=== PATIENT | male | born 1995 | race Caucasian/White ===

== ENCOUNTER 2017-11-15 09:16 | Emergency (ER) | payer SELFPAY ==
[~2017-11-15] VITALS: Ht 182.9 cm; Wt 120.2 kg
[2017-11-15] MEDS ORDERED: IV NORMAL SALINE 1,000ML 1,000 ML IV ONE (09:45)
[2017-11-15] MEDS ORDERED: methylPREDNISolone SOD SUCC PF 125 MG/2 ML VIAL. IV ONE (09:45)
[2017-11-15] MEDS ORDERED: diphenhydrAMINE 50 MG/ML VIAL IVP ONE (09:45)
[2017-11-15] MEDS ORDERED: FAMOTIDINE 20 MG/2 ML VIAL IVP ONE (09:45)
[2017-11-15] MEDS ORDERED: DIPH50CA PO (10:33)
[2017-11-15] MEDS ORDERED: PRED20TA PO (10:33)
[2017-11-15] MEDS ORDERED: LORA10TA3 PO (10:33)
[2017-11-15] MEDS ORDERED: RANI150T21 PO (10:33)
[2017-11-15 11:00] VITALS: BP 121/76
--- NOTE | 2017-11-15 11:05 | ED.ADGEN ---
Past History Past Medical History: No Pertinent History Past Surgical History: No Surgical History Alcohol Use: None Drug Use: None Adult General HPI HPI Patient is a 22 year old male who presents with rash. Patient first noticed a rash on his hands after petting his girlfriend's dog 2 days earlier. He applied some topical steroids to the area yesterday. This morning, he awoke with the same rash only it had spread over the arms and torso and to the legs and knees. He has not had a fever. He does not have allergies that he knows of but he has had an allergy to poison estefania in the past. He has not been taking any medications in the last 6 weeks other than some Benadryl over the last couple days. He has never been told he had herpes virus. He does not complain of any involvement of the lips, tongue, or mouth. Review of Systems Review of Systems Constitutional: Denies fever or chills Eyes: Denies change in visual acuity HENT: Denies nasal congestion or sore throat Respiratory: Denies cough or shortness of breath Cardiovascular: No additional information not addressed in HPI GI: Denies abdominal pain Musculoskeletal: Denies back pain or joint pain Integument: Denies rash Neurologic: Denies headache Endocrine: Denies polyuria All other systems were reviewed and found to be within normal limits, except as documented in this note. Current Medications Current Medications Current Medications Medications (Trade) Dose Ordered Sig/Bebe Start Time Stop Time Status Last Admin Dose Admin Diphenhydramine HCl (Benadryl) 25 mg 1X ONCE 11/15/17 09:45 11/15/17 09:46 DC 11/15/17 10:00 25 MG Famotidine (Pepcid Vial) 20 mg 1X ONCE 11/15/17 09:45 11/15/17 09:46 DC 11/15/17 10:01 20 MG Methylprednisolone Sodium Succinate (SOLU-Medrol 125MG VIAL) 125 mg 1X ONCE 11/15/17 09:45 11/15/17 09:46 DC 11/15/17 10:00 125 MG Sodium Chloride 1,000 ml @ 1,000 mls/hr 1X ONCE 11/15/17 09:45 11/15/17 10:44 DC 11/15/17 10:00 1,000 MLS/HR Allergies Allergies Allergies Coded Allergies Type Severity Reaction Last Updated Verified No Known Drug Allergies 11/15/17 No Physical Exam Physical Exam Constitutional: Well developed, well nourished, no acute distress, non-toxic appearance HENT: Normocephalic, atraumatic, bilateral external ears normal, oropharynx moist, no lesions in mouth or on mucosa Eyes: PERRLA, EOMI, conjunctiva normal Neck: Normal range of motion, no tenderness, supple Cardiovascular:Heart rate regular rhythm, no murmur Lungs & Thorax: Bilateral breath sounds clear to auscultation Skin: Warm, dry, diffuse erythema and papular rash over the hands and knees. The rash is worse over the hands and wrists. There are annular lesions as well. These are small, about 0.5 cm or less. They have raised borders and the central area is clear. Some of them do appear more targetoid in nature with an erythematous center. The rash does appear on the palms as well as the dorsal aspect of the hands Extremities: No tenderness Neurologic: Alert and oriented X 3 Psychologic: Affect normal Current Patient Data Vital Signs Vital Signs Date Time Temp Pulse Resp B/P (MAP) Pulse Ox O2 Delivery O2 Flow Rate FiO2 11/15/17 09:34 98.4 93 18 97 Room Air EKG EKG [] Radiology/Procedures Radiology/Procedures [] Course & Med Decision Making Course & Med Decision Making Pertinent Labs and Imaging studies reviewed. (See chart for details) Patient is seen and examined in the emergency department. He has a history that is more concerning for urticaria but some of the lesions on his hands and palms do appear suspicious for erythema multiforme. The patient does not have any mucosal involvement and no difficulty breathing or wheezes. The rash could also represent urticaria. Because of this, the patient is treated in the ER with Solu -Medrol, Pepcid, and Benadryl. During the ED course, he does feel subjectively improved. Some of his lesions are resolved compared to admission. Plan will be for discharge home. He is placed on a steroid taper over the next 10 days. He is also advised to use [id number] medicines, Benadryl, Zantac, and Claritin. He will return to the ER for any new or worsening symptoms. Final Impression Final Impression Urticaria Erythema Multiforme? Dragon Disclaimer Dragon Disclaimer This electronic medical record was generated, in whole or in part, using a voice recognition dictation system. LORNE BISWAS DO Nov 15, 2017 11:05
== END 2017-11-15 10:55 | disposition home or self-care (01) ==
LOC: ER 09:16
DX: L50.9 Urticaria, unspecified (principal)
CPT/HCPCS: 96374; 96375; 99284; J1200; J2930; S0028; J7030

== ENCOUNTER 2018-05-01 21:27 | Emergency (ER) | payer BC ==
[~2018-05-01] VITALS: Ht 180.3 cm; Wt 124.7 kg
[~2018-05-01 21:27] MED LIST: DIPH50CA PO; LORA10TA3 PO; PRED20TA PO; RANI150T21 PO
[2018-05-01 21:35] VITALS: BP 139/85
--- NOTE | 2018-05-01 22:13 | PHYS DOC ---
Past History Past Medical History: Other Past Surgical History: Other Alcohol Use: None Drug Use: None Adult General Chief Complaint Chief Complaint: NOSEBLEED HPI HPI 22-year-old male presents with 2 day history of right-sided nosebleed. The patient has had intermittent nosebleeds for the last couple days. They've all been on the right side. He has been able to make him stop each time. The patient has not tried any nasal saline or moisturizing agents. He denies any bleeding disorders. He is not on any blood thinners or anticoagulants. He denies dizziness or shortness of breath. He states he has not had a lot of volume of bleeding. He had the left side of his nose cauterized 2 years ago. Denies fever or chills. Review of Systems Review of Systems Constitutional: Denies fever or chills [] Eyes: Denies change in visual acuity, redness, or eye pain [] HENT: Right-sided nosebleed[] Respiratory: Denies cough or shortness of breath [] Cardiovascular: No additional information not addressed in HPI [] GI: Denies abdominal pain, nausea, vomiting, bloody stools or diarrhea [] : Denies dysuria or hematuria [] Musculoskeletal: Denies back pain or joint pain [] Integument: Denies rash or skin lesions [] Neurologic: Denies headache, focal weakness or sensory changes [] Endocrine: Denies polyuria or polydipsia [] All other systems were reviewed and found to be within normal limits, except as documented in this note. Current Medications Current Medications Current Medications Medications (Trade) Dose Ordered Sig/Bebe Start Time Stop Time Status Last Admin Dose Admin Bacitracin (Bacitracin Topical Pkt) 1 pkt 1X ONCE 05/01/18 22:15 05/01/18 22:16 Allergies Allergies Allergies Coded Allergies Type Severity Reaction Last Updated Verified latex Allergy Intermediate hives, itching 05/01/18 Yes Physical Exam Physical Exam Constitutional: Well developed, well nourished, no acute distress, non-toxic appearance. [] HENT: Normocephalic, atraumatic, bilateral external ears normal, oropharynx moist, no oral exudates, nose dried blood on the right, no active bleeding. [] Eyes: PERRLA, EOMI, conjunctiva normal, no discharge. [] Neck: Normal range of motion, no tenderness, supple, no stridor. [] Cardiovascular:Heart rate regular rhythm, no murmur [] Lungs & Thorax: Bilateral breath sounds clear to auscultation [] Abdomen: Bowel sounds normal, soft, no tenderness, no masses, no pulsatile masses. [] Skin: Warm, dry, no erythema, no rash. [] Back: No tenderness, no CVA tenderness. [] Extremities: No tenderness, no cyanosis, no clubbing, ROM intact, no edema. [] Neurologic: Alert and oriented X 3, normal motor function, normal sensory function, no focal deficits noted. [] Psychologic: Affect normal, judgement normal, mood normal. [] Current Patient Data Vital Signs Vital Signs Date Time Temp Pulse Resp B/P (MAP) Pulse Ox O2 Delivery O2 Flow Rate FiO2 05/01/18 21:35 98.5 91 18 97 Room Air EKG EKG [] Radiology/Procedures Radiology/Procedures [] Course & Med Decision Making Course & Med Decision Making Pertinent Labs and Imaging studies reviewed. (See chart for details) [] Dragon Disclaimer Dragon Disclaimer This electronic medical record was generated, in whole or in part, using a voice recognition dictation system. Departure Departure: Impression: Primary Impression: Right-sided nosebleed Disposition: 01 HOME, SELF-CARE Condition: STABLE Patient Instructions: Nosebleed, [id number] EMMY RDZ DO May 01, 2018 22:13
[2018-05-01] MEDS: BACITRACIN ZINC TOPICAL OINT PACKET. TP ONE (22:15)
== END 2018-05-01 22:15 | disposition home or self-care (01) ==
LOC: ER 21:27
DX: R04.0 Epistaxis (principal); Z91.040 Latex allergy status
CPT/HCPCS: 99282